=== PATIENT | male | born 1950 | race Caucasian/White ===

== ENCOUNTER 2018-04-16 08:46 | Inpatient (IN) | payer MEDICARE, BC ==
[2018-04-16 09:37] LABS: ADD MAN DIFF? NO
[2018-04-16 09:40] LABS: ABNORMAL IP MESSAGE 1; BASOPHILS % 0.4 % (0.0-2.0); EOSINOPHILS % 0.5 % (0.0-7.0); HEMATOCRIT 17.5 % (42.0-52.0); LYMPHOCYTES # 1.2 10^3/ul (0.8-2.9); LYMPHOCYTES % 16.2 % (15.0-51.0); MEAN CORPUSCULAR HEMOGLOBIN 33.3 pg (29.0-33.0); MEAN CORPUSCULAR VOLUME 104.2 fl (82.0-101.0); MEAN PLATELET VOLUME 10.4 fl (7.4-10.4); MONOCYTE # 0.6 10^3/ul (0.3-0.9); MONOCYTES % 8.2 % (0.0-11.0); NEUTROPHIL # 5.4 10^3/ul (1.6-7.5); NEUTROPHILS % 70.9 % (39.0-77.0); NUCLEATED RED BLOOD CELLS% 0.4 /100WBC (0.0-0.0); PLATELET COUNT 205 10^3/UL (140-415); POSITIVE DIFF @See below; RED BLOOD COUNT 1.68 10^6/ul (4.70-6.10); RED CELL DISTRIBUTION WIDTH 15.4 % (11.5-14.5)
[2018-04-16 09:40] LABS: WHITE BLOOD COUNT 7.6 10^3/ul (4.8-10.8)
[2018-04-16] MEDS: PANTOPRAZOLE IV 80 MG in SOD CHLORIDE 0.9% 100 ML IVPB (09:51)
[2018-04-16 09:54] LABS: HEMOGLOBIN 5.6 g/dl (14.0-18.0); PATH REVIEW? YES
[2018-04-16 10:09] LABS: INR 0.99; PROTIME 13.2 Sec (11.9-14.9)
[2018-04-16] MEDS: PANTOPRAZOLE IV 80 MG in SOD CHLORIDE 0.9% 100 ML IV (10:09)
[2018-04-16 10:10] LABS: PARTIAL THROMBOPLASTIN TIME 24.2 Sec (25.0-35.0)
[2018-04-16 10:20] LABS: ALANINE AMINOTRANSFERASE 52 IU/L (13-69); ALBUMIN 3.1 g/dl (3.3-4.9); ALBUMIN/GLOBULIN RATIO 1.24; ALKALINE PHOSPHATASE 52 IU/L (42-121); ANION GAP 12 (8-16); ASPARTATE AMINO TRANSFERASE 83 IU/L (15-46); BILIRUBIN,INDIRECT 0.2 mg/dl (0-1.1); BILIRUBIN,TOTAL 0.2 mg/dl (0.2-1.3); BLOOD UREA NITROGEN 16 mg/dl (7-20); CALCIUM 8.3 mg/dl (8.4-10.2); CARBON DIOXIDE 27 mmol/L (21-31); CHLORIDE 104 mmol/L (97-110); CREATININE 0.54 mg/dl (0.61-1.24); GLUCOSE 116 mg/dl (70-220); POTASSIUM 4.1 mmol/L (3.5-5.1); SODIUM 139 mmol/L (135-144); TOTAL PROTEIN 5.6 g/dl (6.1-8.1)
[2018-04-16] MEDS ORDERED: SOD CHLORIDE 0.9% 1,000 ML IV (11:50)
[2018-04-16] MEDS ORDERED: NACL 0.9% 3 ML SYG IV (12:00)
[2018-04-16] MEDS ORDERED: ACETAMINOPHEN 325 MG TAB PO (12:00)
[2018-04-16] MEDS ORDERED: ONDANSETRON 4 MG INJ IV ×2 (12:00)
[2018-04-16] MEDS ORDERED: LORAZEPAM 2 MG INJ IV (12:30)
[2018-04-16 14:31] LABS: IMMEDIATE SPIN CROSSMATCH 1 2
[2018-04-16] MEDS: DEXTROSE 5%-0.45% NACL 1,000 ML IV (18:14)
[2018-04-16] MEDS ORDERED: PROPOFOL 20 ML (18:46)
[2018-04-16] MEDS ORDERED: PANTOPRAZOLE 40 MG INJ IV (21:00)
[2018-04-17] MEDS: DEXTROSE 5%-0.45% NACL 1,000 ML IV (01:15)
[2018-04-17 06:04] LABS: ADD MAN DIFF? NO
[2018-04-17 06:09] LABS: BASOPHILS % 0.6 % (0.0-2.0); EOSINOPHILS # 0.2 10^3/ul (0.0-0.5); EOSINOPHILS % 2.9 % (0.0-7.0); HEMATOCRIT 22.8 % (42.0-52.0); HEMOGLOBIN 7.5 g/dl (14.0-18.0); LYMPHOCYTES # 1.5 10^3/ul (0.8-2.9); LYMPHOCYTES % 29.8 % (15.0-51.0); MEAN CORPUSCULAR HEMOGLOBIN 31.9 pg (29.0-33.0); MEAN CORPUSCULAR HGB CONC 32.9 g/dl (32.0-37.0); MEAN PLATELET VOLUME 10.4 fl (7.4-10.4); MONOCYTE # 0.5 10^3/ul (0.3-0.9); MONOCYTES % 9.4 % (0.0-11.0); NEUTROPHIL # 2.9 10^3/ul (1.6-7.5); NEUTROPHILS % 55.9 % (39.0-77.0); NUCLEATED RED BLOOD CELLS% 0.4 /100WBC (0.0-0.0); PLATELET COUNT 199 10^3/UL (140-415); RED BLOOD COUNT 2.35 10^6/ul (4.70-6.10)
[2018-04-17 06:09] LABS: WHITE BLOOD COUNT 5.1 10^3/ul (4.8-10.8)
[2018-04-17 06:43] LABS: ALANINE AMINOTRANSFERASE 77 IU/L (13-69); ALBUMIN 2.9 g/dl (3.3-4.9); ALKALINE PHOSPHATASE 45 IU/L (42-121); ANION GAP 11 (8-16); ASPARTATE AMINO TRANSFERASE 142 IU/L (15-46); BILIRUBIN,INDIRECT 0.3 mg/dl (0-1.1); BILIRUBIN,TOTAL 0.3 mg/dl (0.2-1.3); BLOOD UREA NITROGEN 9 mg/dl (7-20); CALCIUM 8.2 mg/dl (8.4-10.2); CARBON DIOXIDE 25 mmol/L (21-31); CHLORIDE 108 mmol/L (97-110); CREATININE 0.59 mg/dl (0.61-1.24); GLUCOSE 97 mg/dl (70-220); MAGNESIUM 2.1 mg/dl (1.7-2.5); SODIUM 140 mmol/L (135-144); TOTAL PROTEIN 5.3 g/dl (6.1-8.1)
[2018-04-17] MEDS: SOD CHLORIDE 0.9% 1,000 ML IV (08:03)
[2018-04-17] MEDS: SALINE 0.65% 45 ML NAS SPRAY NASAL ×2 (12:27→21:25)
[2018-04-17] MEDS: ACETAMINOPHEN 325 MG TAB PO (12:27)
[2018-04-17] MEDS: LORATADINE/PSEUDOEPHED (SR) TAB PO ×2 (12:27→21:24)
[2018-04-17] MEDS: PANTOPRAZOLE 40 MG INJ IV (17:16)
[2018-04-18] MEDS: PANTOPRAZOLE 40 MG INJ IV (06:31)
[2018-04-18 06:41] LABS: ADD MAN DIFF? NO
[2018-04-18 06:45] LABS: WHITE BLOOD COUNT 4.5 10^3/ul (4.8-10.8)
[2018-04-18 06:45] LABS: BASOPHILS % 0.7 % (0.0-2.0); EOSINOPHILS # 0.1 10^3/ul (0.0-0.5); EOSINOPHILS % 3.1 % (0.0-7.0); HEMATOCRIT 24.4 % (42.0-52.0); LYMPHOCYTES # 1.2 10^3/ul (0.8-2.9); LYMPHOCYTES % 26.5 % (15.0-51.0); MEAN CORPUSCULAR HEMOGLOBIN 31.3 pg (29.0-33.0); MEAN CORPUSCULAR HGB CONC 32.8 g/dl (32.0-37.0); MEAN CORPUSCULAR VOLUME 95.3 fl (82.0-101.0); MEAN PLATELET VOLUME 10.4 fl (7.4-10.4); MONOCYTE # 0.5 10^3/ul (0.3-0.9); MONOCYTES % 11.4 % (0.0-11.0); NEUTROPHIL # 2.6 10^3/ul (1.6-7.5); NEUTROPHILS % 57.4 % (39.0-77.0); PLATELET COUNT 233 10^3/UL (140-415); RED BLOOD COUNT 2.56 10^6/ul (4.70-6.10); RED CELL DISTRIBUTION WIDTH 15.7 % (11.5-14.5)
[2018-04-18 07:07] LABS: ALANINE AMINOTRANSFERASE 87 IU/L (13-69); ALBUMIN 3.1 g/dl (3.3-4.9); ALBUMIN/GLOBULIN RATIO 1.19; ALKALINE PHOSPHATASE 50 IU/L (42-121); ANION GAP 12 (8-16); ASPARTATE AMINO TRANSFERASE 129 IU/L (15-46); BILIRUBIN,INDIRECT 0.4 mg/dl (0-1.1); BILIRUBIN,TOTAL 0.4 mg/dl (0.2-1.3); BLOOD UREA NITROGEN 6 mg/dl (7-20); CALCIUM 8.4 mg/dl (8.4-10.2); CARBON DIOXIDE 25 mmol/L (21-31); CHLORIDE 106 mmol/L (97-110); CREATININE 0.52 mg/dl (0.61-1.24); GLUCOSE 101 mg/dl (70-220); POTASSIUM 3.9 mmol/L (3.5-5.1); SODIUM 139 mmol/L (135-144); TOTAL PROTEIN 5.7 g/dl (6.1-8.1)
[2018-04-18] MEDS: SALINE 0.65% 45 ML NAS SPRAY NASAL (08:40)
[2018-04-18] MEDS: LORATADINE/PSEUDOEPHED (SR) TAB PO (08:40)
== END 2018-04-18 13:10 | disposition home or self-care (01) | DRG 378 ==
LOC: E/R 08:46 → TEL 11:50
PROC: 0DB38ZX Excision of Lower Esophagus, Via Natural or Artificial Opening Endoscopic, Diagnostic (ICD-10-PCS; principal; 2018-04-16 17:00)
PROC: 30233N1 Transfusion of Nonautologous Red Blood Cells into Peripheral Vein, Percutaneous Approach (ICD-10-PCS; 2018-04-16 19:00)
DX: K92.1 Melena (principal); D62 Acute posthemorrhagic anemia; F10.20 Alcohol dependence, uncomplicated; I10 Essential (primary) hypertension; E78.5 Hyperlipidemia, unspecified; K74.60 Unspecified cirrhosis of liver; Z87.891 Personal history of nicotine dependence
CPT/HCPCS: 36415; 36430; 71045; 76705; 80053; 82607; 83735; 85025; 85610; 85730; 86850; 86900; 86901; 86920; 88305; 88312; 88313; 96374; 96376; 99291-25

== ENCOUNTER 2018-10-08 11:57 | Day surgery (SDC) | payer MEDICARE, BC ==
[2018-10-08] MEDS ORDERED: PROPOFOL 40 ML (14:02)
== END 2018-10-08 14:46 | disposition home or self-care (01) ==
LOC: GIL 11:57
DX: K22.10 Ulcer of esophagus without bleeding (principal); K64.4 Residual hemorrhoidal skin tags; Z85.01 Personal history of malignant neoplasm of esophagus
CPT/HCPCS: 43239; 88305; 88313